=== PATIENT | female | born 1985 | race Caucasian/White ===

== ENCOUNTER 2016-10-10 08:16 | Outpatient (CLI) | payer MEDICAID, OTHER | END 2016-10-10 08:17 | disposition home or self-care (01) | DX: Z00.00 Encounter for general adult medical examination without abnormal findings (principal) ==

== ENCOUNTER 2016-12-10 16:25 | Outpatient (CLI) | payer OTHER ==
[2016-12-10 19:27] LABS: BILIRUBIN,URINE NEGATIVE (NEGATIVE)
[2016-12-10 20:41] LABS: UR CULTURE IF IND NOT INDICATED; WBC,URINE 0-3 /HPF (0-5)
== END 2016-12-10 16:26 | disposition home or self-care (01) ==
LOC: LAB.R 16:25
PROVIDERS: ATTEND Physician Assistant Medical
DX: R31.9 Hematuria, unspecified (principal)
CPT/HCPCS: 81001; 87086

== ENCOUNTER 2018-01-22 07:23 | Outpatient (CLI) | payer OTHER ==
[2018-01-22 13:27] LABS: BASOPHILS % (AUTO) 0.5 %; EOSINOPHILS # (AUTO) 0.3 10^3/uL (0.0-0.7); EOSINOPHILS % (AUTO) 5.1 %; HGB - HEMOGLOBIN 13.8 g/dL (12.0-16.0); LYMPHOCYTES # (AUTO) 1.3 10^3/uL (1.5-3.5); LYMPHOCYTES % (AUTO) 24.1 %; MEAN CORPUSCULAR HEMOGLOBIN 30.8 pg (27.0-31.0); MEAN CORPUSCULAR HGB CONC 33.3 g/dL (32.0-36.0); MEAN CORPUSCULAR VOLUME 92.5 fL (81.0-99.0); MEAN PLATELET VOLUME 8.9 fL (7.9-10.8); MONOCYTES # (AUTO) 0.3 10^3/uL (0.0-1.0); MONOCYTES % (AUTO) 5.7 %; NEUTROPHILS # (AUTO) 3.6 10^3/uL (1.5-6.6); NEUTROPHILS % (AUTO) 64.6 %; PLT - PLATELET COUNT 220 10^3/uL (130-450); RED BLOOD COUNT 4.48 10^6/uL (4.20-5.40); RED CELL DISTRIBUTION WIDTH 13.9 % (12.0-15.0); WHITE BLOOD COUNT 5.5 x10^3/uL (4.8-10.8)
[2018-01-22 13:40] LABS: ALBUMIN 4.1 g/dL (3.2-5.5); ALBUMIN/GLOBULIN RATIO 1.4 (1.0-2.2); BILIRUBIN,TOTAL 0.8 mg/dL (0.2-1.0); CREATININE 0.6 mg/dL (0.4-1.0); TOTAL PROTEIN 7.1 g/dL (6.7-8.2)
== END 2018-01-22 07:24 | disposition home or self-care (01) ==
LOC: LAB.WCP 07:23
PROVIDERS: ATTEND Family Medicine
DX: K90.0 Celiac disease (principal)
CPT/HCPCS: 36415; 80053; 81599; 83516; 85025

== ENCOUNTER 2018-10-13 08:00 | Outpatient (CLI) | payer OTHER ==
[2018-10-13 19:55] LABS: FOLLICLE STIMULATING HORMONE 6.47 mIU/mL
== END 2018-10-13 23:59 | disposition home or self-care (01) ==
LOC: LAB.WCP 08:00
PROVIDERS: ATTEND Family Medicine
DX: N95.1 Menopausal and female climacteric states (principal)
CPT/HCPCS: 36415; 83001; 84443

== ENCOUNTER 2018-10-13 15:28 | Outpatient (CLI) | payer OTHER ==
--- NOTE | 2018-10-13 16:02 | XRAY Report ---
Reason: IUD CHECK Procedure Date: 10/13/2018 Accession Number: [id number] / [id number] Procedure: WCP - Pelvis 1 View CPT Code: FULL RESULT: EXAM: PELVIS RADIOGRAPHY EXAM DATE: 10/13/2018 03:40 PM. CLINICAL HISTORY: IUD check. COMPARISON: ABDOMEN/PELVIS W/ 01/02/2014 9:27 PM. TECHNIQUE: 1 view. FINDINGS: Bones: Normal. No fracture or bone lesion. Joints: The visualized hip, pubis symphysis, and sacroiliac joints are preserved. No subluxation. Soft Tissues: An intrauterine device is seen projecting over the pelvis. The configuration is similar to the plain radiographic [employer] of the 01/02/2014 CT. IMPRESSION: An intrauterine device is seen projecting over the pelvis, likely stable compared to 2013. Location of the intrauterine device in relation to the uterus cannot be established on plain radiograph. If there is concern for malposition in relationship to the uterus, recommend pelvic ultrasound with transvaginal imaging. RADIA
== END 2018-10-13 15:29 | disposition home or self-care (01) ==
LOC: DI.WCP 15:28
PROVIDERS: ATTEND Family Medicine
DX: Z30.431 Encounter for routine checking of intrauterine contraceptive device (principal); N95.1 Menopausal and female climacteric states
CPT/HCPCS: 36415; 72170; 83001; 84443

== ENCOUNTER 2018-10-21 08:00 | Outpatient (CLI) | payer OTHER ==
[2018-10-22 11:35] LABS: TRICHOMONAS VAGINALIS DNA NEGATIVE (NEGATIVE)
== END 2018-10-21 23:59 | disposition home or self-care (01) ==
LOC: LAB.R 08:00
PROVIDERS: ATTEND Nurse Practitioner Obstetrics & Gynecology
DX: Z30.431 Encounter for routine checking of intrauterine contraceptive device (principal)
CPT/HCPCS: 87491; 87591; 87661

== ENCOUNTER 2020-07-28 17:10 | Outpatient (CLI) | payer OTHER ==
--- NOTE | 2020-07-28 21:52 | Ultrasound Report ---
PROCEDURE: Head or Neck Soft Tissue INDICATIONS: CHRONIC SORE THROAT TECHNIQUE: Real time scanning was performed of the neck region of interest, with image documentation . COMPARISON: None. FINDINGS: Normal appearance of the semitubular glands and normal appearance of regional cervical lymp h nodes. There are few thyroid nodules, all of which are benign in appearance except for the posterio r left thyroid nodule which is indeterminate. IMPRESSION: No findings to explain chronic sore throat. Indeterminate left thyroid lobe nodule posteriorly. A follow-up dedicated thyroid ultrasound in 6 mon ths is recommended to document stability and more fully characterize. Reviewed by: Darci Quigley MD on 07/28/2020 9:51 PM PST Approved by: Darci Quigley MD on 07/28/2020 9:51 PM PST Station ID: [id number]
== END 2020-07-28 17:11 | disposition home or self-care (01) ==
LOC: DI 17:10
PROVIDERS: ATTEND Physician Assistant Medical
DX: E04.1 Nontoxic single thyroid nodule (principal)

== ENCOUNTER 2020-09-27 13:44 | Outpatient (CLI) | payer OTHER ==
[2020-09-27 14:29] VITALS: BP 112/73
--- NOTE | 2020-09-27 14:29 | SLEEP CARE CONSULTATION ---
Information from patient questionnaire entered by Yareli Gonsalez. I have reviewed and concur with the information entered by Yareli Gonsalez. This document represents the service I personally performed and the decisions made by me, Yesi Garcia ARNP. History of Present Illness Service Date and Time: 09/27/2020 1344 Reason for Visit: New patient Chief Complaint: reports: Unrefreshed sleep, Snoring, Observed pauses in breathing, Frequent awakenings at night Date of Onset: couple years Usual bedtime: 10:30-11 pm Time it takes to fall asleep: 15-30 minutes Snores at night: Yes Observed to quit breathing while asleep: Yes Sleeps alone due to snoring: No Number of times waking at night: 2-3 Reasons for waking at night: reports: Snoring, Gasping for air (once), Bathroom, Other (doesn't know what is waking her up) Toss, Turn, or Twitch while sleeping: Yes Recalls having dreams: No Usually gets out of bed at: [id number]; weekends 0800 Feels refreshed in the morning: No Morning headache: No Sleepy or fatigued during the day: Yes Ever fallen asleep while driving: No Takes day naps: No Dreams during day naps: No Prior sleep studies: No Additional HPI information: I had the pleasure of seeing LEIGHANN GILLIS today regarding the possibility of her having a sleep disorder. Her current complaints are unrefreshed sleep, snoring and frequent night awakenings. Her has told her that she snores loudly at night and he has seen her stop breathing at night. She does not feel she is rested when waking up. This has been worse over the last couple years. Her father has sleep apnea and has had a machine. - Parasomnia Symptoms Ever been unable to move upon waking from sleep: No Walks in sleep: Yes (has been known to eat in her sleep) Talks in sleep: No Ever acted out dreams in sleep: No Ever felt weak in the knees when startled or emotional: No Bothered by creepy, crawly, restless sensations in legs: Yes (random; either sitting in chair at night or in bed; last 30 mins to hour) Problems with memory or concentration: Yes (more short term memory but some concentration) Subjective Initial [place] Sleepiness Scale score: 10 (in 2020) Past Medical History Past Medical History: reports: Anxiety, Depression, Other (Celiac disease) Social History 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 Patient is and lives in [place]. Have you smoked in the past 12 months: No Alcohol use: No Caffeine use: Yes Caffeine amount and frequency: 2 cups (8 oz) every morning Family History Family history of sleep disordered breathing: Yes Family Hx Sleep Apnea: Mother: Snoring, Father: Snoring, Sleep apnea - Treated Allergies and Home Medications Drug allergies reviewed: Yes (hydrocodone, hydromorphone) Home medication list reviewed: Yes (no daily meds) Review of Systems Weight loss over past 5 years: 40 Cardiovascular: denies: high blood pressure Gastrointestinal: denies: heartburn Neurological: denies: headaches Psychiatric: denies: anxiety, depression, mood disorder Ear/Nose/Throat: denies: tonsillectomy, wisdom teeth removed Endocrine: reports: sluggishness Immunologic: reports: allergies to food or environment (gluten) Physical Exam Blood Pressure: 112/73 Cuff size: wrist Heart Rate: 64 O2 Saturation: 93 Height: 5 ft Weight: 177 lb Body Mass Index: 34.5 BMI Classification: Obese Neck circumference: 13.5 (inches) Mouth and throat: narrow oropharynx Soft palate: long Hard palate: normal Uvula: long Uvula visualization: 50% Mallampati Class II Tongue: enlarged in size with teeth san on lateral edges Tonsils: 2+ Heart: regular rate and rhythm Lungs: clear bilaterally Impression and Plan 1. Suspected Obstructive Sleep Apnea-Hypopnea Syndrome, as suggested by a history of loud and irregular snoring, observed cessation of breath while asleep, gasping or choking in sleep, frequent awakening during the night, unrefreshed sleep, and cognitive impairment. Narrow oropharynx and obesity are common predisposing factors for obstructive sleep apnea-hypopnea syndrome. I recommend proceeding to polysomnography to confirm the diagnosis and to assess severity. If the patient has significant sleep disordered breathing, a manual CPAP titration study will also be performed to find the optimal treatment pressure. I informed the patient of what the sleep studies involve and after some discussion, obtained agreement to proceed. The pathophysiology of obstructive sleep apnea-hypopnea syndrome was discussed with the patient and health risks of cardiovascular and cerebrovascular disease if not treated. Risks of drowsy driving discussed in detail and patient advised to avoid long distance driving and to ice puller at the first sign of drowsiness. Patient agreed to plan. * Schedule polysomnography +- manual CPAP titration study and return in 1-2 weeks after the study to discuss result and initiate therapy. * Avoid long distance driving or driving when feeling sleepy. * Avoid alcohol, sedative and muscle relaxant around bedtime. * Attempt to lose weight. * Review instructions provided by trained office staff on how to prepare for the sleep study. * Return for follow-up after sleep study completed. Counseling Topics: Weight loss health impact Visit Type: In Office Time Spent with Patient (minutes): 30 Provider Statement: I spent 100% of the Face to Face Visit with the patient with greater than 50% spent counseling the patient and coordination of care.
== END 2020-09-27 13:45 | disposition home or self-care (01) ==
LOC: SC 13:44
PROVIDERS: ATTEND Nurse Practitioner Family
DX: G47.10 Hypersomnia, unspecified (principal); R06.83 Snoring; R06.81 Apnea, not elsewhere classified; R41.89 Other symptoms and signs involving cognitive functions and awareness; G47.8 Other sleep disorders; E66.9 Obesity, unspecified; Z68.34 Body mass index [BMI] 34.0-34.9, adult
CPT/HCPCS: 99203; 99212

== ENCOUNTER 2020-10-04 13:25 | Outpatient (CLI) | payer OTHER | END 2020-10-04 13:26 | disposition home or self-care (01) | LOC: SC 13:25 | PROVIDERS: ATTEND Nurse Practitioner Family | DX: G47.33 Obstructive sleep apnea (adult) (pediatric) (principal); R09.02 Hypoxemia | CPT/HCPCS: 95806 ==

== ENCOUNTER 2020-10-11 13:12 | Outpatient (CLI) | payer OTHER ==
[2020-10-11] MEDS ORDERED: IOVERSOL 320 100 ML VIAL IVP ONE ×2 (13:33→14:32)
--- NOTE | 2020-10-11 14:20 | CT Report ---
PROCEDURE: SOFT TISSUE NECK W INDICATIONS: CHRONIC SORE THROAT CONTRAST: IV CONTRAST: Isovue 300 ml: 80 PO CONTRAST: *NO PO CONTRAST TECHNIQUE: After the administration of intravenous contrast, 3.0 mm axial sections acquired from the sella to th e aortic arch. Additional oblique axial 3.0 mm sections acquired through the pharynx. 3 mm thick co alverto reformats were generated. For radiation dose reduction, the following was used: automated exp osure control, adjustment of mA and/or kV according to patient size. COMPARISON: Prior soft tissue neck CT, 01/04/2014. Correlation is made with head and neck ultrasound, 07/28/2020. FINDINGS: Image quality: Excellent. Lymph nodes: No enlarged lymph nodes seen throughout the neck. Vessels: Visualized vasculature appears patent. Neck spaces: Generalized, symmetric prominence of the tonsils and adenoids can be seen, without foca l lesions. There is also prominence of the lingual tonsils along the tongue base. No abscess collecti ons can be seen. The oropharynx, nasopharynx, and pharynx demonstrate no mucosal lesions. The vocal cords, false voca l cords, pyriform sinuses, epiglottis, vallecula, and tongue base all appear normal. Extramucosal sp aces appear unremarkable. Glands: The parotid and submandibular glands appear normal. The thyroid is normal in size and there are no incidental findings. Miscellaneous: Visualized brain and orbits appear normal. Lung apices appear clear. Superficial so ft tissues appear normal. Bones: No suspicious bony lesions. Visualized sinuses and mastoids appear unremarkable. Focal C5-C 6 degenerative change is incidentally noted, as on series 6 image 59. IMPRESSION: Symmetric generalized prominence of the lymph tissue of Waldeyer's ring, which is consistent with the given history. The degree of palatine tonsillar swelling and hyperenhancement is less than in 2014. No masses or abscess collection can be seen. Reviewed by: Shane Spencer MD on 10/11/2020 1:19 PM [facility] Approved by: Shane Spencer MD on 10/11/2020 1:19 PM [facility] Station ID: [id number]
== END 2020-10-11 13:13 | disposition home or self-care (01) ==
LOC: DI 13:12
PROVIDERS: ATTEND Physician Assistant Medical
DX: R59.0 Localized enlarged lymph nodes (principal); J35.1 Hypertrophy of tonsils
CPT/HCPCS: 70491; Q9967

== ENCOUNTER 2020-10-13 14:14 | Outpatient (CLI) | payer OTHER ==
--- NOTE | 2020-10-13 14:36 | SLEEP CARE CONSULTATION ---
Information from patient questionnaire entered by Yareli Gonsalez. I have reviewed and concur with the information entered by Yareli Gonsalez. This document represents the service I personally performed and the decisions made by , Yesi Garcia ARNP. History of Present Illness Service Date and Time: 10/13/2020 141 Initial [place] Sleepiness Scale score: 10 (in 2020) Current [place] Sleepiness Scale score: 12 Additional HPI information: LEIGHANN GILLIS returns for follow up and results of the recently performed home sleep study. I explained the pathophysiology behind obstructive sleep apnea. We then spent quite a bit of time discussing different treatment options. For mild obstructive sleep apnea, surgery and oral appliance are alternatives to nasal CPAP therapy but in moderate or severe cases, nasal CPAP is the most effective and reliable treatment. Because apnea is primarily in supine position, then positional management therapy could be effective. Methods discussed such as positioning with pillows, using a T-shirt with tennis balls in the back, and shown commercial products that have a pillow format on back to prevent supine sleep. I reviewed the impact of weight changes on sleep apnea and strongly recommended losing weight. After some discussion, the patient opted to go with the nasal CPAP therapy. Nasal autoCPAP set at 4-15 cmH20 will be ordered with rationale explained. A manual titration study will be ordered if unable to find optimal pressure with office adjustments. I explained how CPAP machine works with sample devices Respironics Dreamstation and ResRoyal Treatment [employer] F[employer] [id number] and what to expect when using the machine. Using CPAP every night in order to get used to it was emphasized. Patient advised to put CPAP mask on before getting into bed so as not to fall asleep without CPAP. To assist acclimation to CPAP use, it could also be used for a short time during day while reading or watching TV. The patient was instructed to call the CPAP supplier to discuss any mechanical problem that may occur. If the mask given is uncomfortable or is difficult to keep on through the night even with adjustment, contact the CPAP supplier as many will replace with another mask style if notified before 30 days. If snoring or perceives is not getting enough air or too much air from the machine, notify this office. AAS patient education PAP tips reviewed and given to patient. Patient does not drink alcohol. Patient was cautioned about risks of drowsy driving until sleepiness symptoms resolve. Sleep Study - Results Type of Sleep Study: Home sleep study Prior sleep studies: No Polysomnography/Home Sleep Study results: Physician Impression: The quality of the study is good. The length of the study is adequate (> 240 minutes). Please also see the tabulated and graphic data. 1. Obstructive Sleep Apnea-Hypopnea (ICD-10 G47.33), moderate, with an AHI of 15.1/hr and pinky SaO2 of 78%. During the study, the patient had 57 apneas (56 obstructive, 1 central, 0 mixed) and 53 hypopneas. The longest episode lasted 154.5 seconds. The patient only slept prone (supine AHI was 0 and non-supine, 15.06). 2. Hypoxemia (ICD-10 R09.02), moderate, with the lowest oxygen saturation of 78 % and 29.1 minutes with SaO2 under 90%. Baseline oxygen saturation was normal (Average oxygen saturation was 94%). Allergies and Home Medications Home medication list reviewed: Yes (no new meds) Review of Systems Review of systems same as previous: Yes (no changes) Physical Exam Heart Rate: 83 O2 Saturation: 98 Height: 5 ft Weight: 177 lb Body Mass Index: 34.5 BMI Classification: Obese Impression and Plan 1. Obstructive Sleep Apnea-Hypopnea Syndrome, moderate, with lowest oxygen saturation of 78%. Obviously this is the cause of the patients symptoms of unrefreshed sleep, and excessive daytime sleepiness. Positive pressure therapy could benefit anxiety and depression. Her uses a CPAP machine and she is familiar with it. Her only concern is the coverage of supplies by the insurance. I informed her that most insurance cover CPAP supplies well with possible copays or deductibles weighing in on the cost. She voiced understanding. The patient will be started on nasal autoCPAP therapy with pressure set at 4-15 cmH2O. A manual titration study will be completed if unable to find optimal treatment pressure with office adjustments. Compliance guidelines also reviewed. A copy of compliance guidelines will be given for reference at check out. * Nasal auto CPAP therapy, pressure at 4-15 cm H2O. * Attempt to lose weight. * The patient is again cautioned about driving until sleepiness completely resolves. * Return one month after CPAP obtained. I will assess response to therapy and compliance at that time. Counseling Topics: Weight loss health impact Visit Type: In Office Time Spent with Patient (minutes): 20 Provider Statement: I spent 100% of the Face to Face Visit with the patient with greater than 50% spent counseling the patient and coordination of care.
== END 2020-10-13 14:15 | disposition home or self-care (01) ==
LOC: SC 14:14
PROVIDERS: ATTEND Nurse Practitioner Family
DX: G47.33 Obstructive sleep apnea (adult) (pediatric) (principal); E66.9 Obesity, unspecified; Z68.34 Body mass index [BMI] 34.0-34.9, adult
CPT/HCPCS: 99212; 99213

== ENCOUNTER 2021-06-06 08:00 | Outpatient (CLI) | payer OTHER ==
[2021-06-06 12:19] LABS: BASOPHILS % (AUTO) 0.5 %; EOSINOPHILS # (AUTO) 0.1 10^3/uL (0.0-0.7); EOSINOPHILS % (AUTO) 1.7 %; HCT - HEMATOCRIT 42.6 % (37.0-47.0); HGB - HEMOGLOBIN 13.6 g/dL (12.0-16.0); LYMPHOCYTES # (AUTO) 1.5 10^3/uL (1.5-3.5); MEAN CORPUSCULAR HEMOGLOBIN 29.1 pg (27.0-31.0); MEAN CORPUSCULAR HGB CONC 31.9 g/dL (32.0-36.0); MEAN PLATELET VOLUME 10.5 fL (7.9-10.8); MONOCYTES # (AUTO) 0.3 10^3/uL (0.0-1.0); MONOCYTES % (AUTO) 4.5 %; NEUTROPHILS # (AUTO) 4.7 10^3/uL (1.5-6.6); PLT - PLATELET COUNT 258 10^3/uL (130-450); RED BLOOD COUNT 4.68 10^6/uL (4.20-5.40); RED CELL DISTRIBUTION WIDTH 13.3 % (12.0-15.0); WHITE BLOOD COUNT 6.6 x10^3/uL (4.8-10.8)
[2021-06-06 12:22] LABS: ALBUMIN 4.3 g/dL (3.2-5.5); ALBUMIN/GLOBULIN RATIO 1.3 (1.0-2.2); BILIRUBIN,TOTAL 0.5 mg/dL (0.2-1.0); CALCIUM 9.4 mg/dL (8.5-10.3); CREATININE 0.7 mg/dL (0.4-1.0); POTASSIUM 3.8 mmol/L (3.5-5.0); TOTAL PROTEIN 7.6 g/dL (6.7-8.2)
== END 2021-06-06 23:59 ==
LOC: LAB.WCP 08:00
PROVIDERS: ATTEND Family Medicine
DX: L04.9 Acute lymphadenitis, unspecified (principal)
CPT/HCPCS: 36415; 80053; 83615; 85025

== ENCOUNTER 2022-03-20 14:45 | Outpatient (CLI) | payer OTHER ==
[2022-03-20 18:01] LABS: BASOPHILS % (AUTO) 0.6 %; EOSINOPHILS # (AUTO) 0.1 10^3/uL (0.0-0.7); HCT - HEMATOCRIT 43.9 % (37.0-47.0); HGB - HEMOGLOBIN 14.2 g/dL (12.0-16.0); LYMPHOCYTES # (AUTO) 1.4 10^3/uL (1.5-3.5); LYMPHOCYTES % (AUTO) 19.4 %; MEAN CORPUSCULAR HGB CONC 32.3 g/dL (32.0-36.0); MEAN CORPUSCULAR VOLUME 89.6 fL (81.0-99.0); MEAN PLATELET VOLUME 10.4 fL (7.9-10.8); MONOCYTES # (AUTO) 0.4 10^3/uL (0.0-1.0); MONOCYTES % (AUTO) 5.6 %; NEUTROPHILS # (AUTO) 5.3 10^3/uL (1.5-6.6); NEUTROPHILS % (AUTO) 73.1 %; PLT - PLATELET COUNT 313 10^3/uL (130-450); RED CELL DISTRIBUTION WIDTH 13.6 % (12.0-15.0); WHITE BLOOD COUNT 7.3 x10^3/uL (4.8-10.8)
[2022-03-20 18:26] LABS: CALCIUM 9.7 mg/dL (8.5-10.3); CREATININE 0.7 mg/dL (0.4-1.0); POTASSIUM 3.8 mmol/L (3.5-5.0)
== END 2022-03-20 14:46 | disposition home or self-care (01) ==
LOC: LAB.N 14:45
PROVIDERS: ATTEND Family Medicine
DX: M79.601 Pain in right arm (principal)
CPT/HCPCS: 36415; 80048; 82550; 85025; 85651

== ENCOUNTER 2022-07-02 13:00 | Outpatient (CLI) | payer OTHER ==
--- NOTE | 2022-07-09 12:23 | Mammography Report ---
BILATERAL DIGITAL SCREENING MAMMOGRAM 3D/2D: 07/02/2022 CLINICAL: Routine screening. Comparison is made to exams dated: 07/09/2021 mammogram - [facility] and 03/02/2014 mammogram - [facility]. Both breasts are heterogeneously dense, which may obscure small masses (category c / 51-75% glandular tissue). No significant masses, calcifications, or other findings are seen in either breast. There has been no significant interval change. IMPRESSION: NEGATIVE There is no mammographic evidence of malignancy. A 1 year screening mammogram is recommended. Future imaging is recommended as follows: 01/25/2024 screening mammogram. Based on the Tyrer Cuzick model (a risk assessment model) the patients lifetime risk is 6.8% and her 10 year risk is 0.8%. According to the ACR, ACS, and NCCN guidelines, an annual breast MRI exam michael g with mammogram is recommended if the patients lifetime risk is 20% or greater. This exam was interpreted at Station ID: [id number]. NOTE: For mammograms, a report in lay terms will be sent to the patient. Approximately 15% of breast malignancies will not be visualized mammographically. In the management of a palpable breast mass, a negative mammogram must not discourage biopsy of a clinically suspicious lesion. Electronically Signed By: Manjit Mooney M.D. [facility] [place]:07/08/2022 09:50:46 ACR BI-RADS Category 1: Negative 3341F PARENCHYMAL PATTERN: (D) - The breast(s) demonstrate(s) heterogeneously dense fibroglandular lucila barr. BI-RADS CATEGORY: (1) - 1 RECOMMENDATION: (ANNUAL) - Recommend routine annual screening mammography. [id number] 1 year screening LATERALITY: (B)
== END 2022-07-02 13:01 | disposition home or self-care (01) ==
LOC: DI.N 13:00
PROVIDERS: ATTEND Nurse Practitioner
DX: Z12.31 Encounter for screening mammogram for malignant neoplasm of breast (principal)

== ENCOUNTER 2023-04-18 12:55 | Outpatient (CLI) | payer OTHER ==
[2023-04-18 18:26] LABS: BASOPHILS % (AUTO) 0.5 %; EOSINOPHILS # (AUTO) 0.2 10^3/uL (0.0-0.7); EOSINOPHILS % (AUTO) 2.2 %; HCT - HEMATOCRIT 44.5 % (37.0-47.0); HGB - HEMOGLOBIN 14.1 g/dL (12.0-16.0); LYMPHOCYTES # (AUTO) 1.9 10^3/uL (1.5-3.5); LYMPHOCYTES % (AUTO) 22.9 %; MEAN CORPUSCULAR HEMOGLOBIN 29.6 pg (27.0-31.0); MEAN CORPUSCULAR HGB CONC 31.7 g/dL (32.0-36.0); MEAN CORPUSCULAR VOLUME 93.3 fL (81.0-99.0); MEAN PLATELET VOLUME 10.4 fL (7.9-10.8); MONOCYTES # (AUTO) 0.4 10^3/uL (0.0-1.0); MONOCYTES % (AUTO) 4.4 %; NEUTROPHILS # (AUTO) 5.9 10^3/uL (1.5-6.6); NEUTROPHILS % (AUTO) 69.6 %; PLT - PLATELET COUNT 316 10^3/uL (130-450); RED BLOOD COUNT 4.77 10^6/uL (4.20-5.40); WHITE BLOOD COUNT 8.5 x10^3/uL (4.8-10.8)
[2023-04-18 19:38] LABS: ALBUMIN 4.4 g/dL (3.2-5.5); ALBUMIN/GLOBULIN RATIO 1.7 (1.0-2.2); BILIRUBIN,TOTAL 0.2 mg/dL (0.2-1.0); CALCIUM 9.9 mg/dL (8.5-10.3); CREATININE 0.7 mg/dL (0.6-1.3); POTASSIUM 3.6 mmol/L (3.5-4.5)
== END 2023-04-18 12:56 | disposition home or self-care (01) ==
LOC: LAB.N 12:55
PROVIDERS: ATTEND Nurse Practitioner
DX: K90.0 Celiac disease (principal); R05.3 Chronic cough
CPT/HCPCS: 36415; 80053; 85025

== ENCOUNTER 2023-06-02 16:07 | Outpatient (CLI) | payer OTHER ==
[2023-06-02] MEDS ORDERED: ALBUTEROL 1 PUFF INH STA (18:00)
== END 2023-06-02 16:08 | disposition home or self-care (01) ==
LOC: RT 16:07
PROVIDERS: ATTEND Nurse Practitioner
DX: R05.3 Chronic cough (principal)
CPT/HCPCS: 94060; 94729

== ENCOUNTER 2023-06-06 08:15 | Outpatient (CLI) | payer OTHER ==
--- NOTE | 2023-06-06 15:27 | XRAY Report ---
PROCEDURE: TMJ's BL INDICATIONS: TEMPOROMANDIBULAR JOINT TENDERNESS TECHNIQUE: 3 view(s) of the bilateral acquired. COMPARISON: None FINDINGS: Bones: No fractures or dislocations. No suspicious bony lesions. No dislocation at the temporomand ibular joint. No arthritic changes. Soft tissues: No suspicious soft tissue calcifications. IMPRESSION: Unremarkable exam. If concern persists, CT or MRI is recommended. Reviewed by: Susie Warren MD on 06/06/2023 3:26 PM [facility] Approved by: Susie Warren MD on 06/06/2023 3:26 PM [facility] Station ID: [id number]
== END 2023-06-06 08:30 | disposition home or self-care (01) ==
LOC: DI.N 08:15
PROVIDERS: ATTEND Family Medicine
DX: M26.69 Other specified disorders of temporomandibular joint (principal)

== ENCOUNTER 2023-08-19 08:31 | Outpatient (CLI) | payer OTHER ==
--- NOTE | 2023-08-19 09:00 | Sleep Patient Instructions ---
Sleep Center Visit Summary - Patient Visit Information Reason for Visit: Annual follow-up - Patient Instructions Additional Instructions: You will continue with CPAP therapy with pressure changed to 10-12 cmH2O. A supply prescription will be updated with your DME. We encourage you to continue to try to lose weight. Please follow up with the sleep care office in 1 year. - Clinic Information Contact: [facility] [address] [place] [address] [email or web address] T: [phone]
--- NOTE | 2023-08-19 09:02 | SLEEP CARE CONSULTATION ---
Information from patient questionnaire entered by Moriah Almendarez. I have reviewed and concur with the information entered by Moriah Almendarez. This document represents the service I personally performed and the decisions made by me, Yesi Garcia ARNP. History of Present Illness Service Date and Time: 08/19/2023 0831 Previous diagnosis: Moderate, Obstructive Sleep Apnea-Hypopnea Syndrome AHI: 15.1 (10/04/2020) Reason for follow up: annual (LAST SEEN 09/2020) Equipment type: CPAP (RESMED AIRSENSE 10 AUTOSET SET UP 08/14/22) Equipment obtained from: [employer] (getting supplies) Mask style: Nasal Mask brand: Respironics ([place]) Backup mask available: No (needs supplies) Last cushion change: every 3 months Prior sleep studies: No Type of Sleep Study: Home sleep study (10/04/2020) HPI additional information: LEIGHANN GILLIS was diagnosed to have moderate, AHI 15.1, obstructive sleep apnea- hypopnea syndrome and returned today for CPAP therapy annual follow-up. Sleep Study - Results Type of Sleep Study: Home sleep study Prior sleep studies: No CPAP Compliance Data - Data Reviewed with Patient Average duration of nightly device use: 7 HRS 54 MINS Compliance rate %: 99 (08/15/22-08/14/23; 363/365 days used) Current pressure setting (cmH2O): 4-15 (median 8.6, avg 10.9, max 11.7) Average residual AHI: 1.8 Central apnea: 0.2 Obstructive apnea: 1.1 Hypopnea: 0.4 Average large leak: 0.3 L/min Subjective Patient concerns: reports: condensation in mask/hose, nasal congestion, dry mouth, nose, throat, epistaxis (occasional; has history of this too). denies: aerophagia, mask discomfort, air blowing in eyes, mask leak noise Observed to snore while using device: Yes (is waking herself with snoring) Current pressure setting perceived as: too low On therapy, patient: reports: sleeping better, awakening more refreshed, being more awake and alert during the day, more rested overall. denies: drowsiness while driving Initial [place] Sleepiness Scale score: 10 (in 2020) Current [place] Sleepiness Scale score: 9 Allergies and Home Medications Known drug allergies: Yes (as listed) Drug allergies reviewed: Yes Home medication list reviewed: Yes (Respimat inhaler) Allergy and home medication list: Allergies hydrocodone Adverse Reaction (Verified 08/15/23 08:52) Emesis hydromorphone [Hydromorphone] Adverse Reaction (Verified 08/15/23 08:52) Emesis Review of Systems Review of systems same as previous: Yes (no changes) Physical Exam Vital signs obtained and entered by: YESI BOYCE-Yovani Blood Pressure: 125/78 Cuff size: regular (right arm) Heart Rate: 68 O2 Saturation: 98 Height: 5 ft Weight: 208 lb 6.4 oz Weight change since last visit: 31 lb gain Body Mass Index: 40.6 BMI Classification: Morbidly Obese Impression and Plan 1. Obstructive Sleep Apnea-Hypopnea Syndrome, moderate, with good treatment compliance and good apnea control. On CPAP therapy, the patient has better sleep quality and is more rested overall. The patients pressure will be changed to autoCPAP 10-12 cmH20 for patient comfort and to reflect pressure being used. Patient advised to contact me if pressure change is uncomfortable so that it can be adjusted. Goals for apnea control discussed. Patient's apnea severity and rationale for treatment to reduce apnea, improve sleep quality and reduce cardiovascular and cerebrovascular events was reviewed. I also reviewed the benefit of consistent device use of CPAP for depression/anxiety. 2. Obesity, unspecified. Currently patients BMI is 40.6. She has gained weight. Obesity increases the risk of apnea, CPAP pressure requirements and overall health risks especially cardiovascular and diabetes. Thus patient is advised to lose weight. * Change auto CPAP pressure to 10-12 cmH2O * Update supply prescription * Notify me if snoring with mask or feeling that the pressure is too much or too little * Attempt to lose weight * Call this office if any problems using CPAP * Return for follow up in 12 months, or sooner if concerns arise Adjust device pressure to (cmH2O): 10-12 Counseling Topics: Spare mask, Weight loss health impact Prescriptions: Device supplies Follow up with Sleep Care in: 1 year Visit Type: In Office Time Spent with Patient (minutes): 23 Provider Statement: I spent 100% of the Face to Face Visit with the patient with greater than 50% spent counseling the patient and coordination of care.
[2023-08-19 09:09] VITALS: BP 125/78; O2SAT 98
== END 2023-08-19 08:32 | disposition home or self-care (01) ==
LOC: SC 08:31
PROVIDERS: ATTEND Nurse Practitioner Family
DX: G47.33 Obstructive sleep apnea (adult) (pediatric) (principal); E66.01 Morbid (severe) obesity due to excess calories; Z68.41 Body mass index [BMI] 40.0-44.9, adult
CPT/HCPCS: 99212; 99213